=== PATIENT | female | born 1990 | race Caucasian/White ===

== ENCOUNTER 2016-11-06 20:24 | Emergency (ER) | payer MEDICARE ==
[~2016-11-06] VITALS: Ht 177.8 cm; Wt 164.2 kg
[~2016-11-06 20:24] MED LIST: ALKA-SELTZER P1 EAC8 PO; COLACE100 MG PO; PERCOCET 5/31 TABLET PO; PYRIDIUM200 MG PO
[2016-11-06 21:15] LABS: ADD MIUA? YES; BILIRUBIN NEGATIVE; BLOOD LARGE; COLOR DK YELLOW ((YELLOW)); GLUCOSE (STRIP) NEGATIVE; KETONES NEGATIVE; LEUKOCYTES TRACE; NITRITE NEGATIVE; PH, URINE 7.5 (5-8); PROTEIN (STRIP) TRACE; SPECIFIC GRAVITY 1.013 (1.000-1.030)
[2016-11-06 21:19] LABS: HEMATOCRIT 37.9 % (36.0-46.0); MCH 31.7 PG (29.0-34.0); MCV 96.2 FL (83-99); MEAN PLAT.VOLUME 8.7 uM^3 (9.5-12.4); PLATELET COUNT 337 K/uL (156-360); RBC DIS.WIDTH-CV 12.1 % (11.8-14.6); RBC DIS.WIDTH-SD 41.3 % (39-53); RED BLOOD COUNT 3.94 M/uL (3.80-5.20); WHITE BLOOD COUNT 18.3 K/uL (4.1-10.2)
[2016-11-06 21:30] LABS: CHLORIDE 104 mEq/L (99-109); POTASSIUM 3.9 mEq/L (3.7-5.4); SODIUM 138 mEq/L (136-147)
[2016-11-06 21:32] LABS: GLUCOSE 99 mg/dL (70-99)
[2016-11-06 21:34] LABS: ANION GAP 9 MEQ/L (2-14); TOTAL BILIRUBIN 0.5 mg/dL (0.0-1.0)
[2016-11-06 21:36] LABS: ALKALINE PHOSPHATASE 64 IU/L (3-129); GFR ESTIMATE (CALCULATED) > 59 mL/min/
[2016-11-06 21:37] LABS: UREA NITROGEN (BUN) 8 mg/dL (9-23)
[2016-11-06 21:43] LABS: RED BLOOD CELLS 20-30 /HPF (0-5); WHITE BLOOD CELLS RARE /HPF (0-5)
[2016-11-06 21:44] LABS: BACTERIA NONE SEEN; CASTS NONE SEEN /LPF; CRYSTALS NONE SEEN; EPITHELIAL CELLS NONE SEEN; MUCUS NONE SEEN; UCUL ADDED? NO
[2016-11-06 21:49] LABS: QUANTITATIVE HCG < 4.0 MIU/ML
[2016-11-07] MEDS ORDERED: CIPRO500 MG PO (01:55)
[2016-11-07] MEDS ORDERED: PERCOCET 5/31 TABLET PO (01:55)
[2016-11-07] MEDS ORDERED: OXYBUTYNIN CHLOR5 MG PO (01:55)
[2016-11-07] MEDS ORDERED: ZOFRAN ODT4 MG PO (02:03)
[2016-11-07 02:13] VITALS: BP 123/70
== END 2016-11-07 02:25 | disposition home or self-care (01) ==
LOC: EME 20:24
DX: R10.30 Lower abdominal pain, unspecified (principal); R10.2 Pelvic and perineal pain; N39.0 Urinary tract infection, site not specified
CPT/HCPCS: 74000; 76775; 80053; 81003; 84702; 85027; 87086; 99281; 99285

== ENCOUNTER 2017-12-01 20:47 | Emergency (ER) | payer OTHER ==
[~2017-12-01] VITALS: Ht 175.3 cm; Wt 176.5 kg
[~2017-12-01 20:47] MED LIST changes: +CIPRO500 MG PO; +OXYBUTYNIN CHLOR5 MG PO; +ZOFRAN ODT4 MG PO
[2017-12-01] MEDS ORDERED: FLEXERIL10 MG PO (22:30)
[2017-12-01] MEDS ORDERED: MOTRIN600 MG PO (22:30)
[2017-12-01 22:40] VITALS: BP 134/97
== END 2017-12-01 22:55 | disposition home or self-care (01) ==
LOC: EME 20:47
DX: S30.0XXA Contusion of lower back and pelvis, initial encounter (principal); W07.XXXA Fall from chair, initial encounter
CPT/HCPCS: 72100; 73502; 99281; 99283

== ENCOUNTER 2017-12-29 22:24 | Emergency (ER) | payer OTHER ==
[~2017-12-29] VITALS: Ht 177.8 cm; Wt 178.3 kg
[~2017-12-29 22:24] MED LIST changes: +FLEXERIL10 MG PO; +MOTRIN600 MG PO
[2017-12-29 22:57] LABS: APPEARANCE CLEAR ((CLEAR)); BILIRUBIN NEGATIVE; BLOOD NEGATIVE; COLOR YELLOW ((YELLOW)); GLUCOSE (STRIP) NEGATIVE; KETONES NEGATIVE; LEUKOCYTES NEGATIVE; NITRITE NEGATIVE; PROTEIN (STRIP) NEGATIVE; SPECIFIC GRAVITY 1.023 (1.000-1.030); UCUL ADDED? NO; UROBILINOGEN 0.2 MG/DL (0.2-1.0)
[2017-12-29 23:03] LABS: HEMATOCRIT 36.9 % (36.0-46.0); HEMOGLOBIN 12.4 G/DL (11.9-15.5); MCH 32.5 PG (29.0-34.0); MCHC 33.6 G/DL (30.0-36.0); MCV 96.9 FL (83-99); PLATELET COUNT 265 K/uL (156-360); RBC DIS.WIDTH-SD 46.5 % (39-53); RED BLOOD COUNT 3.81 M/uL (3.80-5.20); WHITE BLOOD COUNT 11.2 K/uL (4.1-10.2)
[2017-12-29 23:15] LABS: ALBUMIN 3.8 g/dL (3.2-4.8)
[2017-12-29 23:16] LABS: CHLORIDE 105 mEq/L (99-109); POTASSIUM 3.7 mEq/L (3.7-5.4); SODIUM 138 mEq/L (136-147)
[2017-12-29 23:18] LABS: GLUCOSE 81 mg/dL (70-99); TOTAL PROTEIN 7.5 g/dL (6.4-8.3)
[2017-12-29 23:20] LABS: TOTAL BILIRUBIN 0.3 mg/dL (0.0-1.0)
[2017-12-29 23:21] LABS: ALKALINE PHOSPHATASE 76 IU/L (3-129)
[2017-12-29 23:22] LABS: CREATININE 0.8 mg/dL (0.6-1.3); GFR ESTIMATE (CALCULATED) > 59 mL/min/
[2017-12-29 23:23] LABS: AST (GOT) 15 IU/L (2-34); UREA NITROGEN (BUN) 12 mg/dL (9-23)
[2017-12-29 23:24] LABS: ALT (GPT) 17 IU/L (3-49)
[2017-12-29 23:30] LABS: QUANTITATIVE HCG < 4.0 MIU/ML
[2017-12-29 23:32] LABS: LIPASE 18 U/L (1.0-51.0)
[2017-12-30] MEDS ORDERED: PERCOCET 5/31 TABLET PO (00:12)
[2017-12-30] MEDS ORDERED: ZOFRAN4 MG PO (00:19)
[2017-12-30 00:52] VITALS: BP 147/91
[2017-12-31] MEDS ORDERED: PERCOCET 5/31 TABLET PO (17:40)
[2017-12-31] MEDS ORDERED: ZOFRAN ODT4 MG PO (17:40)
== END 2017-12-30 00:53 | disposition home or self-care (01) ==
LOC: EME 22:24
DX: K80.20 Calculus of gallbladder without cholecystitis without obstruction (principal)
CPT/HCPCS: 76705; 80053; 81003; 83690; 84702; 85027; 99281; 99284; J1885

== ENCOUNTER 2017-12-31 14:04 | Emergency (ER) | payer OTHER ==
[~2017-12-31] VITALS: Ht 177.8 cm; Wt 176.9 kg
[~2017-12-31 14:04] MED LIST changes: +ZOFRAN4 MG PO
[2017-12-31 14:33] LABS: APPEARANCE CLEAR ((CLEAR)); BILIRUBIN NEGATIVE; BLOOD NEGATIVE; COLOR YELLOW ((YELLOW)); GLUCOSE (STRIP) NEGATIVE; KETONES NEGATIVE; LEUKOCYTES NEGATIVE; NITRITE NEGATIVE; PROTEIN (STRIP) NEGATIVE; SPECIFIC GRAVITY 1.019 (1.000-1.030); UROBILINOGEN 0.2 MG/DL (0.2-1.0)
[2017-12-31 14:38] LABS: HEMATOCRIT 38.9 % (36.0-46.0); HEMOGLOBIN 13.1 G/DL (11.9-15.5); MCH 32.4 PG (29.0-34.0); MCHC 33.7 G/DL (30.0-36.0); MCV 96.3 FL (83-99); PLATELET COUNT 247 K/uL (156-360); RBC DIS.WIDTH-CV 12.8 % (11.8-14.6); RBC DIS.WIDTH-SD 45.3 % (39-53); RED BLOOD COUNT 4.04 M/uL (3.80-5.20); WHITE BLOOD COUNT 10.4 K/uL (4.1-10.2)
[2017-12-31 14:46] LABS: CHLORIDE 105 mEq/L (99-109); POTASSIUM 4.1 mEq/L (3.7-5.4); SODIUM 137 mEq/L (136-147)
[2017-12-31 14:52] LABS: CREATININE 0.8 mg/dL (0.6-1.3); GFR ESTIMATE (CALCULATED) > 59 mL/min/; UREA NITROGEN (BUN) 13 mg/dL (9-23)
[2017-12-31 14:54] LABS: GLUCOSE 116 mg/dL (70-99); LIPASE 13 U/L (1.0-51.0)
[2017-12-31 15:01] LABS: QUANTITATIVE HCG < 4.0 MIU/ML
[2017-12-31 17:09] LABS: ALBUMIN 3.7 g/dL (3.2-4.8)
[2017-12-31 17:11] LABS: TOTAL PROTEIN 7.3 g/dL (6.4-8.3)
[2017-12-31 17:14] LABS: ALKALINE PHOSPHATASE 70 IU/L (3-129)
[2017-12-31 17:17] LABS: AST (GOT) 19 IU/L (2-34); DIRECT BILIRUBIN 0.3 mg/dL (0.0-0.3)
[2017-12-31 17:18] LABS: ALT (GPT) 17 IU/L (3-49)
[2017-12-31 17:31] LABS: TOTAL BILIRUBIN 0.5 mg/dL (0.0-1.0)
[2017-12-31] MEDS ORDERED: ZOFRAN ODT4 MG PO (17:40)
[2017-12-31] MEDS ORDERED: PERCOCET 5/31 TABLET PO (17:40)
[2017-12-31 18:14] VITALS: BP 122/71
== END 2017-12-31 18:14 | disposition home or self-care (01) ==
LOC: EME 14:04
PROVIDERS: Nurse Practitioner Family
DX: K80.20 Calculus of gallbladder without cholecystitis without obstruction (principal)
CPT/HCPCS: 74177; 80048; 80076; 81003; 82247; 83690; 84702; 85027; 99281; 99285; J1885; J2405; J3010; J7030

== ENCOUNTER 2018-01-19 07:57 | Day surgery (SDC) | payer OTHER ==
[~2018-01-19] VITALS: Ht 177.8 cm; Wt 170.5 kg
[~2018-01-19 07:57] MED LIST changes: +BIOTIN10000 MCG PO; +TURMERIC538 MG PO; +VALTREX50 MG/ML PO; +VITAMIN B-125000 MC1 PO
[2018-01-19 08:39] VITALS: BP 113/62
[2018-01-19] MEDS ORDERED: OXYCODONE HCL5 MG PO (15:17)
[2018-01-19 16:42] VITALS: BP 98/60
[2018-01-19 17:40] VITALS: BP 98/55
[2018-01-19 20:08] VITALS: BP 120/77
[2018-01-19 23:31] VITALS: BP 147/80
[2018-01-20 03:59] VITALS: BP 134/83
[2018-01-20 07:20] VITALS: BP 107/53
== END 2018-01-20 11:04 | disposition home or self-care (01) ==
LOC: SDC 07:57 → ENRESERV 18:11 → 2SOUTH 18:39 → 2EAST 18:39 → ENRESERV 18:43 → 2EAST 20:04
PROVIDERS: Anesthesiology
PROC: 0FT44ZZ Resection of Gallbladder, Percutaneous Endoscopic Approach (ICD-10-PCS; principal; 2018-01-19)
DX: K80.10 Calculus of gallbladder with chronic cholecystitis without obstruction (principal); E66.01 Morbid (severe) obesity due to excess calories; K76.0 Fatty (change of) liver, not elsewhere classified; Z68.43 Body mass index [BMI] 50.0-59.9, adult
CPT/HCPCS: 81025; 88304; G0378; J0131; J0330; J1100; J1170; J2250; J2405; J2710; J2765; J3010; S0074